=== PATIENT | female | born 1945 | race Caucasian/White ===

== ENCOUNTER 2020-03-14 22:59 | Inpatient (IN) | payer OTHER, MEDICARE ==
[~2020-03-14] VITALS: Ht 160 cm; Wt 62.1 kg
[2020-03-14 23:00] VITALS: BP_SYST 103
[2020-03-14 23:56] LABS: BASOPHILS # (AUTO) 0.1 K/uL (0.0-0.2); BASOPHILS % (AUTO) 0.7 % (0.0-2.0); EOSINOPHILS # (AUTO) 0.2 K/uL (0.0-0.4); EOSINOPHILS % (AUTO) 1.4 % (0.0-4.0); HEMATOCRIT 35.1 % (36-48); HEMOGLOBIN 11.8 g/dL (12.0-16.0); LYMPHOCYTES # (AUTO) 3.5 K/uL (1.0-5.5); LYMPHOCYTES % (AUTO) 23.8 % (20.5-51.5); MEAN CORPUSCULAR HEMOGLOBIN 28 pg (27-31); MEAN CORPUSCULAR HGB CONC 34 % (32-36); MEAN CORPUSCULAR VOLUME 83 fL (79.0-98.0); NEUTROPHILS # (AUTO) 9.8 K/uL (1.8-7.7); NEUTROPHILS % (AUTO) 67.1 % (40.0-70.0); PLATELET COUNT (AUTO) 330 K/uL (130-430); RED BLOOD CELL COUNT(AUTO) 4.22 MIL/uL (4.2-6.2); RED CELL DISTRIBUTION WIDTH 19.3 % (9.0-15.0); WHITE BLOOD COUNT (AUTO) 14.7 K/uL (4.8-10.8)
[2020-03-15 00:10] LABS: ANION GAP 15 (5-15); CALCIUM 9.3 mg/dL (8.4-11.0); CHLORIDE 99 mmol/L (98-107); CREATININE 1.53 mg/dL (0.55-1.30); GLUCOSE 109 mg/dL (70-99); SODIUM SERUM 140 mmol/L (136-145); UREA NITROGEN, BLOOD 13 mg/dL (8-21)
[2020-03-15 00:16] LABS: ALANINE AMINOTRANSFERASE 21 U/L (12-78); ALBUMIN 3.6 g/dL (3.4-4.8); ASPARTATE AMINOTRANSFERASE 17 U/L (10-37); TOTAL BILIRUBIN 0.5 mg/dL (0.0-1.0)
[2020-03-15 00:19] LABS: POTASSIUM 2.6 mmol/L (3.5-5.1)
[2020-03-15] MEDS ORDERED: KCL 10 mEq in 50 mL (PREMIX) 50 ML IV ONE (00:30)
[2020-03-15 01:06] LABS: BILIRUBIN,URINE NEGATIVE (NEGATIVE); BLOOD, URINE NEGATIVE (NEGATIVE); CLARITY/URINE CLEAR (CLEAR); COLOR,URINE YELLOW (YELLOW); GLUCOSE,URINE NEGATIVE (NEGATIVE); KETONES,URINE NEGATIVE (NEGATIVE); LEUKOCYTE ESTERASE ,URINE 2+ (NEGATIVE); NITRITE, URINE NEGATIVE (NEGATIVE); PROTEIN URINE 2+ (NEGATIVE); UROBILINOGEN,URINE 0.2 (0.2-1.0)
[2020-03-15 01:12] LABS: BACTERIA,URINE MODERATE /HPF (None Seen); RBC,URINE 0-3 /HPF (0-3); WBC,URINE 20-50 /HPF (0-3)
[2020-03-15] MEDS ORDERED: cefTRIAXone 1 GM in D5W 50 ML IV ONE (01:15)
[2020-03-15] MEDS ORDERED: TEMA30CA5 PO (01:23)
[2020-03-15] MEDS ORDERED: LIP40 PO (01:23)
[2020-03-15] MEDS ORDERED: ASPI-1155 PO (01:23)
[2020-03-15] MEDS ORDERED: AMLO2.5T2 PO (01:23)
[2020-03-15] MEDS ORDERED: FURO-149 PO (01:23)
[2020-03-15] MEDS ORDERED: VITD2000 PO (01:23)
[2020-03-15] MEDS ORDERED: SODI325T PO (01:23)
[2020-03-15] MEDS ORDERED: FER300L PO (01:23)
[2020-03-15] MEDS ORDERED: CALC-823 PO (01:23)
[2020-03-15] MEDS ORDERED: METO25TA6 PO (01:23)
[2020-03-15] MEDS ORDERED: HYDR100T25 PO (01:23)
[2020-03-15] MEDS ORDERED: SYN50 PO (01:23)
[2020-03-15] MEDS ORDERED: PRO40 PO (01:23)
[2020-03-15] MEDS ORDERED: cefTRIAXone 1 GM VIAL ONE (01:59)
[2020-03-15 02:31] VITALS: BP_SYST 135
[2020-03-15] MEDS ORDERED: FLU VACC QS2020-21(65UP)/PF 0.7 ML/SYRINGE I.M. PRN (03:00)
[2020-03-15] MEDS ORDERED: HYDROcodone/ACETAMIN 5-325 MG TAB (NORCO/ VICODIN) PO PRN (06:45)
[2020-03-15] MEDS ORDERED: HYDROcodone/ACETAMIN 10-325 MG TAB PO PRN (06:45)
[2020-03-15] MEDS ORDERED: ONDANSETRON HCL 4 MG/2 ML VIAL IVP PRN (06:45)
[2020-03-15] MEDS ORDERED: NALOXONE HCL 0.4 MG/ML AMP (NARCAN) IVP PRN ×2 (06:45)
[2020-03-15] MEDS ORDERED: ACETAMINOPHEN 325 MG TABLET PO PRN (06:45)
[2020-03-15 07:30] VITALS: BP_SYST 113
[2020-03-15] MEDS ORDERED: cefTRIAXone 1 GM IVPB PREMIX 50 ML IV SCH (08:00)
[2020-03-15 08:43] LABS: BASOPHILS # (AUTO) 0.1 K/uL (0.0-0.2); BASOPHILS % (AUTO) 0.6 % (0.0-2.0); EOSINOPHILS # (AUTO) 0.3 K/uL (0.0-0.4); EOSINOPHILS % (AUTO) 2.8 % (0.0-4.0); HEMATOCRIT 35.1 % (36-48); HEMOGLOBIN 11.5 g/dL (12.0-16.0); MEAN CORPUSCULAR HEMOGLOBIN 28 pg (27-31); MEAN CORPUSCULAR HGB CONC 33 % (32-36); MONOCYTES % (AUTO) 8.1 % (1.7-9.3); NEUTROPHILS # (AUTO) 7.6 K/uL (1.8-7.7); NEUTROPHILS % (AUTO) 63.5 % (40.0-70.0); PLATELET COUNT (AUTO) 322 K/uL (130-430); RED BLOOD CELL COUNT(AUTO) 4.15 MIL/uL (4.2-6.2); RED CELL DISTRIBUTION WIDTH 19.2 % (9.0-15.0)
[2020-03-15 08:54] LABS: MEAN CORPUSCULAR VOLUME 85 fL (79.0-98.0)
[2020-03-15 09:30] LABS: ANION GAP 10 (5-15); CALCIUM 8.8 mg/dL (8.4-11.0); CHLORIDE 100 mmol/L (98-107); CREATININE 1.93 mg/dL (0.55-1.30); GLUCOSE 143 mg/dL (70-99); SODIUM SERUM 139 mmol/L (136-145); UREA NITROGEN, BLOOD 14 mg/dL (8-21)
[2020-03-15 09:40] LABS: POTASSIUM 2.7 mmol/L (3.5-5.1)
[2020-03-15] MEDS ORDERED: POTASSIUM CHLORIDE 20 MEQ TAB.PRT.SR PO ONE (10:00)
[2020-03-15] MEDS: amLODIPine BESYLATE 5 MG TABLET PO SCH ×2 (10:07→21:27)
[2020-03-15] MEDS: CHOLECALCIFEROL (VITAMIN D3) 2,000 UNIT TABLET PO SCH (10:11)
[2020-03-15] MEDS: FUROSEMIDE 40 MG TABLET PO SCH (10:12)
[2020-03-15] MEDS: CALCIUM CARBONATE/VITAMIN D3 1 TAB TABLET PO SCH ×2 (10:12→21:28)
[2020-03-15] MEDS: SODIUM BICARBONATE 650 MG TABLET PO SCH (10:13)
[2020-03-15] MEDS: FERROUS SULFATE 300 MG/5 ML UDC PO SCH ×2 (10:15→21:28)
[2020-03-15 11:19] VITALS: BP_SYST 120
[2020-03-15] MEDS: METOPROLOL TARTRATE 25 MG TABLET PO SCH (11:22)
[2020-03-15 13:43] VITALS: BP_SYST 121
[2020-03-15] MEDS: CEFEPIME 1 GM in D5W 50 ML IV SCH (13:43)
[2020-03-15] MEDS: hydrALAZINE HCL 25 MG TABLET PO SCH ×2 (13:43→22:54)
[2020-03-15] MEDS: VANCOMYCIN HCL 1,000 MG in NS 250 ML IV SCH (15:07)
[2020-03-15 16:45] VITALS: BP_SYST 120
[2020-03-15 20:00] VITALS: BP_SYST 135
[2020-03-15] MEDS: ATORVASTATIN 20 MG TABLET PO SCH (21:27)
[2020-03-15] MEDS: PANTOPRAZOLE SODIUM 40 MG TAB PO SCH (21:27)
[2020-03-15] MEDS: TEMAZEPAM 15 MG CAPSULE PO SCH (21:27)
[2020-03-16 00:30] VITALS: BP_SYST 118; BP_SYST 148
[2020-03-16] MEDS: LEVOTHYROXINE SODIUM 0.05 MG TABLET PO SCH (06:11)
[2020-03-16] MEDS: hydrALAZINE HCL 25 MG TABLET PO SCH ×3 (06:19→22:00)
[2020-03-16 06:21] LABS: BASOPHILS # (AUTO) 0.1 K/uL (0.0-0.2); BASOPHILS % (AUTO) 0.8 % (0.0-2.0); EOSINOPHILS # (AUTO) 0.4 K/uL (0.0-0.4); EOSINOPHILS % (AUTO) 3.4 % (0.0-4.0); HEMATOCRIT 30.5 % (36-48); LYMPHOCYTES # (AUTO) 2.4 K/uL (1.0-5.5); LYMPHOCYTES % (AUTO) 18.3 % (20.5-51.5); MEAN CORPUSCULAR HEMOGLOBIN 28 pg (27-31); MEAN CORPUSCULAR HGB CONC 33 % (32-36); MEAN CORPUSCULAR VOLUME 86 fL (79.0-98.0); MONOCYTES # (AUTO) 1.4 K/uL (0.0-1.0); MONOCYTES % (AUTO) 10.9 % (1.7-9.3); NEUTROPHILS # (AUTO) 8.6 K/uL (1.8-7.7); NEUTROPHILS % (AUTO) 66.6 % (40.0-70.0); PLATELET COUNT (AUTO) 264 K/uL (130-430); RED BLOOD CELL COUNT(AUTO) 3.57 MIL/uL (4.2-6.2); WHITE BLOOD COUNT (AUTO) 12.9 K/uL (4.8-10.8)
[2020-03-16 06:41] LABS: ALANINE AMINOTRANSFERASE 17 U/L (12-78); ALBUMIN 2.9 g/dL (3.4-4.8); ANION GAP 8 (5-15); ASPARTATE AMINOTRANSFERASE 17 U/L (10-37); CHLORIDE 100 mmol/L (98-107); CREATININE 2.84 mg/dL (0.55-1.30); GLUCOSE 251 mg/dL (70-99); PHOSPHORUS 3.3 mg/dL (2.7-4.5); POTASSIUM 3.4 mmol/L (3.5-5.1); SODIUM SERUM 135 mmol/L (136-145); TOTAL BILIRUBIN 0.4 mg/dL (0.0-1.0); UREA NITROGEN, BLOOD 28 mg/dL (8-21)
[2020-03-16 07:50] VITALS: BP_SYST 111
[2020-03-16 08:21] LABS: ERYTHROCYTE SEDIMENTATION RATE 21 MM/HR (0-20)
[2020-03-16] MEDS ORDERED: ASPIRIN 81 MG TAB.CHEW PO SCH (09:00)
[2020-03-16] MEDS: CHOLECALCIFEROL (VITAMIN D3) 2,000 UNIT TABLET PO SCH (10:09)
[2020-03-16] MEDS: SODIUM BICARBONATE 650 MG TABLET PO SCH (10:10)
[2020-03-16] MEDS: FERROUS SULFATE 300 MG/5 ML UDC PO SCH ×2 (10:10→20:19)
[2020-03-16] MEDS: METOPROLOL TARTRATE 25 MG TABLET PO SCH (10:10)
[2020-03-16] MEDS: amLODIPine BESYLATE 5 MG TABLET PO SCH ×2 (10:10→20:23)
[2020-03-16] MEDS: CALCIUM CARBONATE/VITAMIN D3 1 TAB TABLET PO SCH ×2 (10:10→20:22)
[2020-03-16] MEDS: FUROSEMIDE 40 MG TABLET PO SCH (10:11)
[2020-03-16 10:44] LABS: C-REACTIVE PROTEIN QUANT 1.7 mg/dL (0-0.5)
[2020-03-16 12:10] VITALS: BP_SYST 118
[2020-03-16] MEDS: CEFEPIME 1 GM in D5W 50 ML IV SCH (15:10)
[2020-03-16 15:59] VITALS: BP_SYST 120
[2020-03-16] MEDS ORDERED: POTASSIUM CHLORIDE 20 MEQ TAB.PRT.SR PO ONE (18:00)
[2020-03-16 20:00] VITALS: BP_SYST 132
[2020-03-16] MEDS: ATORVASTATIN 20 MG TABLET PO SCH (20:22)
[2020-03-16] MEDS: PANTOPRAZOLE SODIUM 40 MG TAB PO SCH (20:22)
[2020-03-16] MEDS: TEMAZEPAM 15 MG CAPSULE PO SCH (22:28)
[2020-03-17] VITALS: BP_SYST 129
[2020-03-17] MEDS: hydrALAZINE HCL 25 MG TABLET PO SCH ×3 (06:00→22:00)
[2020-03-17 06:07] LABS: BASOPHILS # (AUTO) 0.1 K/uL (0.0-0.2); EOSINOPHILS # (AUTO) 0.7 K/uL (0.0-0.4); EOSINOPHILS % (AUTO) 6.4 % (0.0-4.0); LYMPHOCYTES # (AUTO) 2.6 K/uL (1.0-5.5); MEAN CORPUSCULAR HEMOGLOBIN 28 pg (27-31); MEAN CORPUSCULAR HGB CONC 33 % (32-36); MEAN CORPUSCULAR VOLUME 85 fL (79.0-98.0); MONOCYTES # (AUTO) 1.4 K/uL (0.0-1.0); NEUTROPHILS # (AUTO) 6.1 K/uL (1.8-7.7); NEUTROPHILS % (AUTO) 55.6 % (40.0-70.0); PLATELET COUNT (AUTO) 258 K/uL (130-430); RED BLOOD CELL COUNT(AUTO) 3.88 MIL/uL (4.2-6.2); RED CELL DISTRIBUTION WIDTH 19.5 % (9.0-15.0)
[2020-03-17] MEDS: LEVOTHYROXINE SODIUM 0.05 MG TABLET PO SCH (06:16)
[2020-03-17 07:07] LABS: ERYTHROCYTE SEDIMENTATION RATE 22 MM/HR (0-20)
[2020-03-17 07:41] LABS: ANION GAP 6 (5-15); CALCIUM 9.3 mg/dL (8.4-11.0); CHLORIDE 100 mmol/L (98-107); CREATININE 2.18 mg/dL (0.55-1.30); GLUCOSE 256 mg/dL (70-99); POTASSIUM 3.8 mmol/L (3.5-5.1); SODIUM SERUM 137 mmol/L (136-145); UREA NITROGEN, BLOOD 18 mg/dL (8-21)
[2020-03-17 07:49] VITALS: BP_SYST 138
[2020-03-17] MEDS: CALCIUM CARBONATE/VITAMIN D3 1 TAB TABLET PO SCH ×2 (08:31→20:36)
[2020-03-17] MEDS: SODIUM BICARBONATE 650 MG TABLET PO SCH (08:31)
[2020-03-17] MEDS: CHOLECALCIFEROL (VITAMIN D3) 2,000 UNIT TABLET PO SCH (08:31)
[2020-03-17 08:33] LABS: C-REACTIVE PROTEIN QUANT 1.5 mg/dL (0-0.5)
[2020-03-17] MEDS: FERROUS SULFATE 300 MG/5 ML UDC PO SCH ×2 (08:33→20:37)
[2020-03-17] MEDS: METOPROLOL TARTRATE 25 MG TABLET PO SCH (08:33)
[2020-03-17] MEDS: amLODIPine BESYLATE 5 MG TABLET PO SCH ×2 (08:34→20:36)
[2020-03-17 12:00] VITALS: BP_SYST 122
[2020-03-17] MEDS: CEFEPIME 1 GM in D5W 50 ML IV SCH (13:23)
[2020-03-17] MEDS: VANCOMYCIN HCL 1,000 MG in NS 250 ML IV SCH (14:17)
[2020-03-17 16:00] VITALS: BP_SYST 130
[2020-03-17 20:00] VITALS: BP_SYST 120
[2020-03-17] MEDS: ATORVASTATIN 20 MG TABLET PO SCH (20:36)
[2020-03-17] MEDS: PANTOPRAZOLE SODIUM 40 MG TAB PO SCH (20:36)
[2020-03-17] MEDS: TEMAZEPAM 15 MG CAPSULE PO SCH (21:59)
[2020-03-18] VITALS: BP_SYST 129
[2020-03-18] MEDS: LEVOTHYROXINE SODIUM 0.05 MG TABLET PO SCH (06:05)
[2020-03-18] MEDS: hydrALAZINE HCL 25 MG TABLET PO SCH (06:05)
[2020-03-18 08:00] VITALS: BP_SYST 116
[2020-03-18] MEDS: amLODIPine BESYLATE 5 MG TABLET PO SCH (09:01)
[2020-03-18] MEDS: FERROUS SULFATE 300 MG/5 ML UDC PO SCH (09:01)
[2020-03-18] MEDS: CALCIUM CARBONATE/VITAMIN D3 1 TAB TABLET PO SCH (09:01)
[2020-03-18] MEDS: CHOLECALCIFEROL (VITAMIN D3) 2,000 UNIT TABLET PO SCH (09:01)
[2020-03-18] MEDS: SODIUM BICARBONATE 650 MG TABLET PO SCH (09:01)
[2020-03-18] MEDS: METOPROLOL TARTRATE 25 MG TABLET PO SCH (09:02)
[2020-03-18 10:43] VITALS: BP_SYST 118
[2020-03-18] MEDS ORDERED: VANC1PIG IVPB (10:54)
[2020-03-18] MEDS ORDERED: VANC1PLA9 IV (11:01)
== END 2020-03-18 11:20 | disposition home or self-care (01) | DRG 871 ==
LOC: SED 22:59 → SMU 03-15 01:33
PROVIDERS: ADMIT Internal Medicine Cardiovascular Disease; ATTEND Preventive Medicine Preventive Medicine/Occupational Environmental Medicine
PROC: 5A1D70Z Performance of Urinary Filtration, Intermittent, Less than 6 Hours Per Day (ICD-10-PCS; principal; 2020-03-16)
DX: A41.9 Sepsis, unspecified organism (principal); N18.6 End stage renal disease; N39.0 Urinary tract infection, site not specified; N17.9 Acute kidney failure, unspecified; E44.0 Moderate protein-calorie malnutrition; I12.0 Hypertensive chronic kidney disease with stage 5 chronic kidney disease or end stage renal disease; E87.1 Hypo-osmolality and hyponatremia; E87.6 Hypokalemia; B95.2 Enterococcus as the cause of diseases classified elsewhere; D63.8 Anemia in other chronic diseases classified elsewhere; I95.9 Hypotension, unspecified; E03.9 Hypothyroidism, unspecified; E11.22 Type 2 diabetes mellitus with diabetic chronic kidney disease; E88.09 Other disorders of plasma-protein metabolism, not elsewhere classified; M21.611 Bunion of right foot; Z20.828 Contact with and (suspected) exposure to other viral communicable diseases; E11.65 Type 2 diabetes mellitus with hyperglycemia; E78.5 Hyperlipidemia, unspecified; E86.0 Dehydration; Z87.891 Personal history of nicotine dependence; Z99.2 Dependence on renal dialysis; Z68.24 Body mass index [BMI] 24.0-24.9, adult
CPT/HCPCS: 36415; 71045; 80048; 80053; 81000-TC; 83605; 83735-TC; 83880; 84100-TC; 84484; 85025; 85651-TC; 86140; 87040-TC; 87081; 87086; 87186-TC; 90935; 93005; 93306; 96365; 99291; J0692; J0696; J3370; J3480; J7050; J7060